=== PATIENT | female | born 1935 | race Caucasian/White ===

== ENCOUNTER → 2021-03-23 | Outpatient (REF) | payer SELFPAY ==
[~2021-03-23] MED LIST: ADVIL200 MG PO; ASPIRIN 81M81 MG/TA2 PO; CELEXA10 MG PO; CLEOCIN HCL300 MG PO; FISH OIL 1000MG1 CAP PO; FISH OIL1 POW; MOTRIN 600600 MG/TAB PO; NORCO 325 MG-51 TAB PO; OMNICEF 300MG300 MG PO; PROAIR HFA0.09 MG/AC IH; VITAMIN D 50,1.25 MG PO
[2021-03-23 20:14] LABS: HEMOGLOBIN 11.2 g/dl (12.5-16.0); MEAN CELL VOLUME 93 fl (80.0-100.0); MEAN CORPUSCULAR HEMOGLOBIN 31 pg (27.0-31.0); MEAN CORPUSCULAR HGB CONC 33 g/dl (33.0-37.0); MEAN PLATELET VOLUME 9.7 fl (7.4-10.4); PLATELET COUNT 213 K/mm3 (130-400); RED BLOOD COUNT 3.65 M/mm3 (4.10-5.30); REDCELL DISTRIBUTION WIDTH-CV 12.9 % (11.5-14.5)
[2021-03-23 20:16] LABS: HEMATOCRIT 33.9 % (37.0-47.0)
[2021-03-23 20:29] LABS: ALBUMIN 3.4 gm/dL (3.5-5.0); BILIRUBIN,TOTAL 0.2 mg/dL (0.0-1.0); CALCIUM 9.1 mg/dL (8.4-10.2); CREATININE, serum 0.76 (0.52-1.25); POTASSIUM 3.6 mmol/L (3.4-5.0); TOTAL PROTEIN 6.5 gm/dL (6.4-8.2)
[2021-03-23 20:34] LABS: VALPROIC ACID (DEPAKENE) 33.3 ug/mL (50.0-100.0)
[2021-03-23 21:05] LABS: HYPOCHROMIA 1+; LYMPHOCYTE 55 % (20.0-51.0); NEUTROPHILS 42 % (42.0-75.2); PLATELET ESTIMATE NORMAL (NORMAL)
== END ==
LOC: ZCOL.LAB 19:57
PROVIDERS: Internal Medicine
DX: R53.1 Weakness (principal)

== ENCOUNTER → 2021-03-24 | Outpatient (CLI) | payer MEDICARE, BC ==
[2021-03-24 20:42] LABS: HEMOGLOBIN 11.9 g/dl (12.5-16.0); MEAN CELL VOLUME 94 fl (80.0-100.0); MEAN CORPUSCULAR HEMOGLOBIN 31 pg (27.0-31.0); MEAN CORPUSCULAR HGB CONC 33 g/dl (33.0-37.0); MEAN PLATELET VOLUME 9.6 fl (7.4-10.4); PLATELET COUNT 217 K/mm3 (130-400); RED BLOOD COUNT 3.88 M/mm3 (4.10-5.30); REDCELL DISTRIBUTION WIDTH-CV 13.1 % (11.5-14.5)
[2021-03-24 21:23] LABS: HEMATOCRIT 36.6 % (37.0-47.0)
[2021-03-24 21:25] LABS: ALBUMIN 3.7 gm/dL (3.5-5.0); BILIRUBIN,TOTAL 0.4 mg/dL (0.0-1.0); CALCIUM 8.8 mg/dL (8.4-10.2); CREATININE, serum 0.74 (0.52-1.25); POTASSIUM 3.8 mmol/L (3.4-5.0)
[2021-03-24 21:31] LABS: VALPROIC ACID (DEPAKENE) 41.3 ug/mL (50.0-100.0)
[2021-03-24 21:50] LABS: EOSINOPHIL 1 % (0-4); HYPOCHROMIA 1+; LYMPHOCYTE 49 % (20.0-51.0); NEUTROPHILS 41 % (42.0-75.2); PLATELET ESTIMATE NORMAL (NORMAL)
== END ==
LOC: ZCOL.LAB 20:26
PROVIDERS: Internal Medicine
DX: D72.829 Elevated white blood cell count, unspecified (principal); E78.2 Mixed hyperlipidemia; F29 Unspecified psychosis not due to a substance or known physiological condition

== ENCOUNTER → 2021-04-07 | Outpatient (CLI) | payer MEDICARE, BC ==
[2021-04-07 21:59] LABS: MEAN CELL VOLUME 92 fl (80.0-100.0); MEAN CORPUSCULAR HEMOGLOBIN 30 pg (27.0-31.0); MEAN CORPUSCULAR HGB CONC 33 g/dl (33.0-37.0); MEAN PLATELET VOLUME 9.9 fl (7.4-10.4); PLATELET COUNT 210 K/mm3 (130-400); RED BLOOD COUNT 3.64 M/mm3 (4.10-5.30); REDCELL DISTRIBUTION WIDTH-CV 13.1 % (11.5-14.5)
[2021-04-07 22:11] LABS: HEMATOCRIT 33.4 % (37.0-47.0)
[2021-04-07 22:51] LABS: BAND 1 % (0-10); LYMPHOCYTE 65 % (20.0-51.0); NEUTROPHILS 29 % (42.0-75.2)
[2021-04-07 22:52] LABS: PLATELET ESTIMATE NORMAL (NORMAL)
== END ==
LOC: ZCOL.LAB 18:16
PROVIDERS: Internal Medicine
DX: D72.829 Elevated white blood cell count, unspecified (principal)

== ENCOUNTER → 2021-08-29 | Outpatient (CLI) | payer MEDICARE, BC ==
[2021-08-29 17:11] LABS: ALBUMIN 3.4 gm/dL (3.4-4.8); BILIRUBIN,TOTAL 0.3 mg/dL (0.2-1.2); CALCIUM 8.7 mg/dL (8.4-10.2); CREATININE, serum 0.8 mg/dL (0.57-1.11); TOTAL PROTEIN 7.2 gm/dL (6.2-8.1)
== END ==
LOC: ZCOL.LAB 16:10
PROVIDERS: Internal Medicine
DX: E87.1 Hypo-osmolality and hyponatremia (principal); E87.2 Acidosis; E03.9 Hypothyroidism, unspecified

== ENCOUNTER 2022-04-03 13:58 | Emergency (ER) | payer MEDICARE, BC ==
[2022-04-03 14:01] VITALS: TEMP 97.7
[2022-04-03 14:18] LABS: HEMOGLOBIN 12.4 g/dl (12.5-16.0); MEAN CELL VOLUME 93 fl (80.0-100.0); MEAN CORPUSCULAR HEMOGLOBIN 30 pg (27-31); MEAN CORPUSCULAR HGB CONC 33 g/dl (33.0-37.0); MEAN PLATELET VOLUME 9.7 fl (7.4-10.4); PLATELET COUNT 168 K/mm3 (130-400); RED BLOOD COUNT 4.09 M/mm3 (4.10-5.30); REDCELL DISTRIBUTION WIDTH-CV 13.6 % (11.5-14.5)
[2022-04-03 14:19] LABS: ARTERIAL BLD GAS O2 SATURATION 99.7 % (92-100); ARTERIAL BLOOD GAS BASE EXCESS 0.6 (-2-2); ARTERIAL BLOOD GAS HCO3 24.4 meq/L (22-26); ARTERIAL BLOOD GAS PCO2 36.5 mmHg (35-45); ARTERIAL BLOOD GAS pH 7.44 (7.35-7.45)
[2022-04-03 14:21] LABS: INR 1.1 (0.8-3.0); PROTHROMBIN TIME 12.1 SECONDS (9.7-12.8)
[2022-04-03 14:33] LABS: ALBUMIN 2.9 gm/dL (3.4-4.8); BILIRUBIN,TOTAL 0.5 mg/dL (0.2-1.2); CALCIUM 9.1 mg/dL (8.4-10.2); CREATININE, serum 1.05 mg/dL (0.57-1.11); POTASSIUM 4.8 mmol/L (3.5-4.5); TOTAL PROTEIN 7.1 gm/dL (6.2-8.1)
[2022-04-03 14:40] LABS: BAND 1 % (0-10); LYMPHOCYTE 34 % (20.0-51.0); NEUTROPHILS 60 % (42.0-75.2); TROPONIN-I 0.132 ng/mL (0.00-0.033)
[2022-04-03 14:41] LABS: HYPOCHROMIA 1+; PLATELET ESTIMATE NORMAL (NORMAL)
--- NOTE | 2022-04-03 15:10 | NUR ---
Mahin RN consulted this [employer]: Patient arrives by EMS following choking episode at [facility] where she currently resides. Patient grandson is at bedside, expressing distress as patient is to be on comfort measures only, and he does not wish for medical intervention at this time. [employer] met with patient and grandson at bedside; patient is alert, disoriented and inquires about candy. Grandson is observed to be stroking patient hand and interacting very appropriately with patient. He states he is aware that the plan of care is for patient to return to [facility]. He states the only concern he has, is that sometimes the facility is short-staffed, "My I'm only really concerned about one person (patient)." He is receptive to education offered for resources for expressing concerns to [facility] administration or patient advocate or to [facility] via reporting. "Yes, ma'am. Understood." He states he is in frequent contact with the team at [facility]. He expresses no questions or concerns at this time. Mahin RN is updated. Per Jahaira Stockton the RN Guidance And Control System Engineer at [facility] has expressed awareness of patient on comfort care measures; she stated "She never should have been sent," and expressed apology. She informs she is now in communication with grandson, and she will assure that nursing staff is aware of comfort measures per grandson and family request. [facility] transportation is coordinated to order picker/assembler patient for ED Discharge to [facility] where she currently resides with comfort care and family support.
[2022-04-03 15:20] VITALS: BP 96/62; PULSE 71
[2022-04-05 08:19] LABS: PATHOLOGY DIFF REVIEW OK +
== END 2022-04-03 15:44 | disposition home or self-care (01) ==
LOC: COL.ER 13:58
PROVIDERS: Emergency Medicine
DX: J96.01 Acute respiratory failure with hypoxia (principal); Z99.81 Dependence on supplemental oxygen; Z20.822 Contact with and (suspected) exposure to COVID-19